=== PATIENT | female | born 1985 | race American Indian/Alaskan Native ===

== ENCOUNTER 2019-04-17 13:06 | Emergency (ER) | payer OTHER ==
--- NOTE | 2019-04-17 14:55 | Event Note ---
ED Screening Note ED Screening Note: generalized abd pain that began a week ago states she is currently 3 months ago states she goes to my [facility] [employer] states she is also having headache and dizziness she is taking labetalol 200 mg BID no vaginal bleeding no dysuria PMHx HTN no allergies to meds This initial assessment/diagnostic orders/clinical plan/treatment(s) is/are subject to change based on patients health status, clinical progression and re- assessment by fellow clinical providers in the ED. Further treatment and workup at subsequent clinical providers discretion. Patient/guardian urged not to elope from the ED as their condition may be serious if not clinically assessed and managed. Initial orders include: labs, UA, US
[2019-04-17 14:56] VITALS: BP 129/75
[2019-04-17 15:51] LABS: Basophils # (Auto) 0.1 K/mm3 (0.0-0.1); Basophils % (Auto) 0.7 % (0.0-1.8); Eosinophils # (Auto) 0.2 K/mm3 (0.0-0.4); Hematocrit 36.4 % (30.3-42.9); Lymphocytes # (Auto) 1.9 K/mm3 (1.2-5.4); Lymphocytes % (Auto) 17.5 % (13.4-35.0); Mean Corpuscular HGB Conc 33 % (30-34); Mean Corpuscular Volume 86 fl (79-97); Monocytes # (Auto) 0.4 K/mm3 (0.0-0.8); Monocytes % (Auto) 3.5 % (0.0-7.3); Platelet Count 274 K/mm3 (140-440); Red Blood Count 4.22 M/mm3 (3.65-5.03); Red Cell Distribution Width 13.8 % (13.2-15.2)
[2019-04-17 15:51] LABS: Bacteria,Urine 1+ /HPF (Negative); Bilirubin,Urine NEG (Negative); Blood,Urine NEG (Negative); Color,Urine Yellow (Yellow); Mucus,Urine FEW /HPF; Protein,Urine <15 mg/dL mg/dL (Negative); Urobilinogen,Urine < 2.0 mg/dL (<2.0)
[2019-04-17 16:07] LABS: Alanine Aminotransferase 17 units/L (7-56); Albumin 3.6 g/dL (3.9-5); BUN/Creatinine Ratio 15; Blood Urea Nitrogen 9 mg/dL (7-17); Calcium 9.4 mg/dL (8.4-10.2); Hemolysis Index 19
--- NOTE | 2019-04-17 17:05 | Ultrasound Report ---
US OB <= 14 weeks fetus INDICATION / CLINICAL INFORMATION: 3 months preg, abd pain. COMPARISON: None available. FINDINGS: Single, viable intrauterine . heart rate 159. Amniotic fluid volume is subjectively normal. Biparietal diameter 2.24 cm, 13 weeks 5 days. Femur length 1.23 cm, 13 weeks 4 days. [place]-rump length 7.44 cm, 13 weeks 4 days. Left ovary is normal. Right ovary contains a complex 2.8 cm cyst, probably resolving corpus luteal cy st. IMPRESSION: 1. Single, viable intrauterine , 13 weeks 4 days. Signer Name: Moses Hoffman MD Signed: 04/17/2019 5:01 PM Workstation Name: [id number]
== END 2019-04-17 19:38 | disposition left against medical advice (07) ==
LOC: ED 13:06
DX: R42 Dizziness and giddiness (principal); Z53.21 Procedure and treatment not carried out due to patient leaving prior to being seen by health care provider
CPT/HCPCS: 36415; 76801; 80053; 81001; 83735; 84100; 84702; 85025; 87086

== ENCOUNTER 2019-09-05 22:21 | Outpatient (CLI) | payer OTHER ==
[2019-09-05] MEDS ORDERED: LACTATED RINGERS 1,000 ML IV SCH (23:45)
[2019-09-05] MEDS ORDERED: ACETAMINOPHEN 325 MG TAB PO PRN (23:48)
[2019-09-06 00:21] VITALS: BP 118/67
[2019-09-06 00:29] LABS: Basophils % (Auto) 0.2 % (0.0-1.8); Eosinophils % (Auto) 0.2 % (0.0-4.3); Lymphocytes % (Auto) 7.8 % (13.4-35.0); Monocytes % (Auto) 7.8 % (0.0-7.3)
[2019-09-06 00:47] LABS: Hematocrit 32.5 % (30.3-42.9); Mean Corpuscular HGB Conc 34 % (30-34); Mean Corpuscular Volume 87 fl (79-97); Platelet Count 240 K/mm3 (140-440); Red Blood Count 3.76 M/mm3 (3.65-5.03); Red Cell Distribution Width 13.6 % (13.2-15.2)
[2019-09-06 00:51] LABS: Alanine Aminotransferase 45 units/L (7-56); Albumin 3.2 g/dL (3.9-5); BUN/Creatinine Ratio 12; Blood Urea Nitrogen 6 mg/dL (7-17); Calcium 8.9 mg/dL (8.4-10.2); Hemolysis Index 2
--- NOTE | 2019-09-06 01:14 | Event Note ---
Date: 09/06/19 Orders given for admission as pt has some symptoms that could be c/w Covid19 vx flu ( body aches, cold symptoms) and testing was ordered. Pt signed out AMA stating she did not want admission despite elevate wbc maternal tachycardia. She states she would like to get testing outside the hospital. I advised RN that pt can go to websites available and find free testing sites or f/u with pcp but that this provider does not have those referrals here at this time. This information was given to pt and she signed out AMA.
[2019-09-06] MEDS ORDERED: FAMOTIDINE 20 MG TAB PO SCH (10:00)
== END 2019-09-06 00:32 | disposition home or self-care (01) ==
LOC: TRG 22:21 → APU 22:22 → TRG 09-06 00:32
PROVIDERS: ATTEND Obstetrics & Gynecology
DX: O47.03 False labor before 37 completed weeks of gestation, third trimester (principal); Z3A.33 33 weeks gestation of pregnancy
CPT/HCPCS: 36415; 80053; 85025

== ENCOUNTER 2019-10-17 20:16 | Inpatient (IN) | payer OTHER ==
--- NOTE | 2019-10-17 22:17 | History and Physical Report ---
History of Present Illness Date of examination: 10/17/19 Date of admission: 10/17/19 20:16 Chief complaint: IOL @ 39+6 weeks History of present illness: EDC Confirmation: 10/18/2019 Past History : 5 Term Births: 2 Premature Births: 0 Living Children: 2 Para: 2 Mult. Births: 0 Prev : 0 Prev. attempt? 0 Aborta: 2 Elect. Ab: 0 Spont. Ab: 2 Ectopics: 0 # 1 Delivery date: 2007 Weeks Gestation: 40 Delivery type: Infant Sex: Male weight: 7-3 # 2 Delivery date: 2010 Weeks Gestation: 40 Delivery type: Sex: Female weight: 7-2 # 3 Delivery date: 2012 Weeks Gestation: 4 Delivery type: SAB # 4 Delivery date: 2017 Weeks Gestation: 8 Delivery type: SAB Risk Factors: Smoked Tobacco Use: Never smoker Smokeless Tobacco Use: Never Passive smoke exposure: no Drug use: no HIV high-risk behavior: no Caffeine use: 0 drinks per day Alcohol use: yes Type: occ Comments: use prior to preg Exercise: yes Times per week: 3 Type of Exercise: walking 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 of genital herpes: no Rash, Viral, or Febrile illness since last LMP? no Varicella/Chicken Pox Status: Previous Disease TB Risk: no Genetic History Congenital Heart Defect: Mom: no Dad: no Mikki Disease: Mom: no Dad: no Thalassemia Mom: no Dad: no Neural Tube Defect Mom: no Dad: no Down's Syndrome Mom: no Dad: no Eliseo-Sachs Mom: no Dad: no Sickle Cell Disease/Trait Mom: no Dad: no Hemophilia Mom: no Dad: no Muscular Dystrophy Mom: no Dad: no Cystic Fibrosis Mom: no Dad: no [place] Chorea Mom: no Dad: no Mental Retardation Mom: no Dad: no Fragile X Mom: no Dad: no Other Genetic/Chromosomal Disorder Mom: no Dad: no Child w/other defect Mom: no Dad: no Enviromental Exposures Xray Exposure: no Medication, drug, or alcohol use since LMP: no Chemical/Other Exposure: no Exposure to Cat Liter: no Hx of Parvovirus (Fifth Disease): no 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 Allergies (reviewed today): No known allergies Past History Past Medical History: other (see HPI) Past Surgical History: other (see HPI) 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) Family/Genetic History: other (see HPI) - Obstetrical History Expected Date of Delivery: 10/18/19 Actual Gestation: 39 Week(s) 6 Day(s) : 5 Para: 2 Hx # Term Pregnancies: 2 Number of Pregnancies: 0 Spontaneous Abortions: 2 Induced : 0 Number of Living Children: 2 Medications and Allergies Allergies Allergy/AdvReac Type Severity Reaction Status Date / Time No Known Allergies Allergy Verified 10/17/19 21:47 Home Medications Medication Instructions Recorded Confirmed Last Taken Type Aspirin [Aspirin BABY CHEW TAB] 1 each PO DAILY 07/02/19 10/17/19 10/17/19 10:00 History 81 mg Pnv No.153/FA/Om3/Dha/Epa/Fish 1 each PO DAILY 07/02/19 10/17/19 10/17/19 10:00 History [[facility] Gummies] labetaloL 100 each PO BID 07/02/19 10/17/19 08/29/19 History Review of Systems All systems: negative - Vital Signs Vital signs: Vital Signs Temp Pulse Resp BP 98.9 F 83 16 131/69 10/17/19 21:52 10/17/19 21:52 10/17/19 21:52 10/17/19 21:52 Temp Pulse Resp BP Pulse Ox 98.9 F 83 16 131/69 10/17/19 21:52 10/17/19 21:54 10/17/19 21:52 10/17/19 21:54 - Physical Exam Breasts: Positive: normal Cardiovascular: Regular rate Lungs: Positive: Clear to auscultation, Normal air movement Abdomen: Positive: normal appearance, soft Genitourinary (Female): Positive: normal external genitalia, normal perenium Vulva: both: normal Vagina: Positive: normal moisture Uterus: Positive: normal size, normal contour Anus/Rectum: Positive: normal perianal skin Extremities: Positive: normal Deep Tendon Reflex Grade: Normal +2 - Obstetrical FHR: category 1 Uterine Contraction Monitor Mode: External Cervical Dilatation: 0.5 (posterior) Cervical Effacement Percentage: 50 station: -3 Uterine Contraction Pattern: Irregular Uterine Tone Measurement Phase: Contraction Uterine Contraction Intensity: Mild Results All other labs normal. Assessment and Plan 34y/o @ 39+6 weeks here for IOL d/t hx HTN currently well controlled w/o m eds. Admission orders in EMR. plan for cervical ripening tonight and pitocin in AM. Serial IOL expectations discussed with patient. - Patient Problems (1) GBS (group B Streptococcus carrier), +RV culture, currently Current Visit: Yes Status: Acute Plan to address problem: Ampicillin q4hr when in labor (2) HTN (hypertension) Current Visit: Yes Status: Acute Qualifiers: Hypertension type: essential hypertension Qualified Code(s): I10 - Essential (primary) hypertension Plan to address problem: monitor b/p baseline pre-e labs (3) 39 weeks gestation of Current Visit: Yes Status: Acute
[2019-10-17] MEDS ORDERED: fentaNYL 100 MCG/2 ML INJ IV PRN (22:18)
[2019-10-17] MEDS ORDERED: DINOPROSTONE 10 MG VAG SUPP VG ONE (22:18)
[2019-10-17] MEDS ORDERED: BUTORPHANOL 2 MG/1 ML INJ IV PRN (22:18)
[2019-10-17] MEDS ORDERED: AMPICILLIN/NS 2 GM/100 ML 2 GM/100 ML BAG IV ONE (22:18)
[2019-10-17] MEDS ORDERED: MINERAL OIL 30 ML ORAL LIQD PO PRN (22:18)
[2019-10-17] MEDS ORDERED: LIDOCAINE (2%) 20 MG/1 ML VIAL 20 ML MDV INFILTRATI ONE (22:18)
[2019-10-17] MEDS ORDERED: ONDANSETRON 4 MG/2 ML INJ IV PRN (22:18)
[2019-10-17] MEDS ORDERED: TERBUTALINE 1 MG/1 ML INJ SUB-Q PRN (22:18)
[2019-10-17] MEDS ORDERED: ePHEDrine SULFATE 50 MG/1 ML INJ IV PRN (22:18)
[2019-10-17] MEDS ORDERED: ZOLPIDEM 5 MG TAB PO ONE (22:32)
[2019-10-17] MEDS ORDERED: OXYTOCIN 20 UNIT/1000ML DRIP 20 UNITS/1,000 ML BAG IV SCH (23:00)
[2019-10-18] LABS: Hematocrit 34.3 % (30.3-42.9); Hemoglobin 12.1 gm/dl (10.1-14.3); Mean Corpuscular HGB Conc 35 % (30-34); Mean Corpuscular Volume 89 fl (79-97); Platelet Count 271 K/mm3 (140-440); Red Blood Count 3.88 M/mm3 (3.65-5.03); Red Cell Distribution Width 14.3 % (13.2-15.2)
[2019-10-18 00:15] LABS: Alanine Aminotransferase 12 units/L (7-56)
[2019-10-18] MEDS ORDERED: AMPICILLIN/NS 1 GM/50 ML 1 GM/50 ML BAG IV SCH (02:20)
[2019-10-18 02:48] LABS: Uric Acid 4.5 mg/dL (3.5-7.6)
[2019-10-18] MEDS ORDERED: AMPICILLIN/NS 2 GM/100 ML 2 GM/100 ML BAG IV ONE (05:00)
[2019-10-18] MEDS: LACTATED RINGERS 1,000 ML IV SCH ×2 (05:02→11:43)
--- NOTE | 2019-10-18 05:32 | Progress Note ---
Assessment and Plan IVF bolusing for epidural. SROM clear with small bloody show. Cervidil removed and ampicillin started. Anticipate . - Patient Problems (1) GBS (group B Streptococcus carrier), +RV culture, currently Current Visit: Yes Status: Acute Plan to address problem: Ampicillin q4hr until delivery (2) HTN (hypertension) Current Visit: Yes Status: Acute Qualifiers: Hypertension type: essential hypertension Qualified Code(s): I10 - Essential (primary) hypertension Plan to address problem: pre-e labs normal (3) 39 weeks gestation of Current Visit: Yes Status: Acute Subjective - Subjective Date of service: 10/18/19 Principal diagnosis: IOL for CHTN @ 40+0 Interval history: EDC Confirmation: 10/18/2019 Past History : 5 Term Births: 2 Premature Births: 0 Living Children: 2 Para: 2 Mult. Births: 0 Prev : 0 Prev. attempt? 0 Aborta: 2 Elect. Ab: 0 Spont. 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 of genital herpes: no Rash, Viral, or Febrile illness since last LMP? no Varicella/Chicken Pox Status: Previous Disease TB Risk: no Genetic History Congenital Heart Defect: Mom: no Dad: no Mikki Disease: Mom: no Dad: no Thalassemia Mom: no Dad: no Neural Tube Defect Mom: no Dad: no Down's Syndrome Mom: no Dad: no Eliseo-Sachs Mom: no Dad: no Sickle Cell Disease/Trait Mom: no Dad: no Hemophilia Mom: no Dad: no Muscular Dystrophy Mom: no Dad: no Cystic Fibrosis Mom: no Dad: no [place] Chorea Mom: no Dad: no Mental Retardation Mom: no Dad: no Fragile X Mom: no Dad: no Other Genetic/Chromosomal Disorder Mom: no Dad: no Child w/other defect Mom: no Dad: no Enviromental Exposures Xray Exposure: no Medication, drug, or alcohol use since LMP: no Chemical/Other Exposure: no Exposure to Cat Liter: no Hx of Parvovirus (Fifth Disease): no 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 Allergies (reviewed today): No known allergies Patient reports: loss of fluid, vaginal bleeding, contractions Objective - Vital Signs Vital Signs: Vital Signs - 12hr 10/17/19 10/17/19 10/18/19 21:52 21:54 03:55 Temperature 98.9 F Pulse Rate 83 83 Respiratory 16 18 Rate Blood Pressure 131/69 Blood Pressure 131/69 [Left] - Exam Breasts: normal Cardiovascular: Regular rate Lungs: Clear to auscultation, Normal air movement Abdomen: Present: normal appearance, soft Vulva: both: normal Uterus: Present: normal FHR: auscultation normal Uterine Contraction Monitor Mode: External Cervical Dilatation: 4 (SROM clear @ 0343) Cervical Effacement Percentage: 80 station: -2 Uterine Contraction Frequency (min): 1-2 Uterine Contraction Duration: 60 Uterine Contraction Pattern: Regular Uterine Tone Measurement Phase: Contraction Uterine Contraction Intensity: Strong/Firm Extremities: normal - Labs Labs: Abnormal Labs 10/17/19 10/17/19 22:40 22:40 MCHC 35 H Creatinine 0.6 L Laboratory Results - last 24 hr 10/17/19 10/17/19 10/17/19 22:40 22:40 22:40 WBC 10.8 RBC 3.88 Hgb 12.1 Hct 34.3 MCV 89 MCH 31 MCHC 35 H RDW 14.3 Plt Count 271 Creatinine 0.6 L Estimated GFR > 60 Uric Acid 4.5 AST 20 ALT 12 Lactate Dehydrogenase 140 Syphilis IgG Antibody Blood Type O POSITIVE Antibody Screen Negative 10/17/19 22:40 WBC RBC Hgb Hct MCV MCH MCHC RDW Plt Count Creatinine Estimated GFR Uric Acid AST ALT Lactate Dehydrogenase Syphilis IgG Antibody Non-reactive Blood Type Antibody Screen
[2019-10-18] MEDS ORDERED: DEXMEDETOMIDINE 200 MCG/2 ML VIAL IV ONE (06:19)
--- NOTE | 2019-10-18 06:53 | Anesthesia Consultation ---
Anesthesia Consult and Med Hx Date of service: 10/18/19 - Airway Anesthetic Teeth Evaluation: Good ROM Head & Neck: Adequate Mental/Hyoid Distance: Adequate Mallampati Class: Class II Intubation Access Assessment: Probably Good - Pulmonary Exam CTA: Yes - Cardiac Exam Cardiac Exam: RRR - Pre-Operative Health Status ASA Pre-Surgery Classification: ASA2 Proposed Anesthetic Plan: Epidural, Spinal - Pulmonary Hx Smoking: No Hx Asthma: No COPD: No Hx Pneumonia: No - Cardiovascular System Hx Hypertension: Yes - Central Nervous System Hx Seizures: No Hx Psychiatric Problems: No - Endocrine Hx Renal Disease: No Hx End Stage Renal Disease: No Hx Hypothyroidism: No Hx Hyperthyroidism: No - Hematic Hx Anemia: No Hx Sickle Cell Disease: No - Other Systems Hx Alcohol Use: No
[2019-10-18] MEDS ORDERED: diphenhydrAMINE 50 MG/ML VIAL IV PRN (06:54)
[2019-10-18] MEDS ORDERED: NALOXONE 2 MG/2 ML INJ IV PRN (06:54)
[2019-10-18] MEDS ORDERED: NalbUPHINE 10 MG/1 ML INJ IV PRN (06:54)
--- NOTE | 2019-10-18 06:54 | Progress Note ---
Labor Epidural - Labor Epidural Start Time: 06:28 Stop Time: 06:40 Performed by:: ELISEO JAUREGUI Procedure: Patient is requesting combined spinal epidural for labor and pain. H&P, labs were reviewed. All questions and concerns were answered. Informed consent was obtained. Timeout performed. Patient in sitting position on side of bed. Sterile prep and drape was performed. [3] mL 1% lidocaine skin wheal at L [3]-L [4]. 18-gauge Touhy epidural needle advanced to [id number] using air technique, [5]. 27-gauge spinal needle advanced [clear positive free-flowing] CSF. spinal dose of [Marcaine 3.75mg]. Epidural catheter advanced to [14] cm. [Negative] Aspiration, [negative] test dose. Sterile dressing applied. Patient tolerated procedure well.
[2019-10-18] MEDS ORDERED: fentaNYL-BUPIV 2 MCG/ML-0.125% 200 MCG/100 ML BAG EPIDURAL SCH (07:00)
--- NOTE | 2019-10-18 07:39 | Progress Note ---
Assessment and Plan - Patient Problems (1) HTN (hypertension) Onset Date: ~10/18/19 Current Visit: Yes Status: Acute Qualifiers: Hypertension type: essential hypertension Qualified Code(s): I10 - Essential (primary) hypertension Plan to address problem: Pressures range post epidural 120's-130's/70's-80's with one outlier diastolic of 90. Continue monitoring pressure per protocol. Subjective - Subjective Date of service: 10/18/19 (IUP @ 40+ IOL for CHTN/Obesity) Principal diagnosis: IOL for CHTN @ 40+0 Interval history: SVE /-2 Moderate bloody show. Epidural in. Martínez to BSD. FSE placed due to difficulty maintaining continuous EFM. Cat 2 tracing immediately following Epidural placement. Position changed to left side lying Patient reports: loss of fluid, vaginal bleeding, contractions Objective - Vital Signs Vital Signs: Vital Signs - 12hr 10/17/19 10/17/19 10/18/19 21:52 21:54 03:55 Temperature 98.9 F Pulse Rate 83 83 Respiratory 16 18 Rate Blood Pressure 131/69 Blood Pressure 131/69 [Left] O2 Sat by Pulse Oximetry 10/18/19 10/18/19 10/18/19 05:35 05:36 05:37 Temperature 98.6 F Pulse Rate 98 H 99 H 98 H Respiratory 16 Rate Blood Pressure 162/99 153/85 Blood Pressure 153/85 [Left] O2 Sat by Pulse 100 Oximetry 10/18/19 10/18/19 10/18/19 05:42 05:47 05:52 Temperature Pulse Rate 98 H 99 H 92 H Respiratory Rate Blood Pressure Blood Pressure [Left] O2 Sat by Pulse 100 100 100 Oximetry 10/18/19 10/18/19 10/18/19 05:53 05:55 05:57 Temperature Pulse Rate 93 H 93 H 100 H Respiratory Rate Blood Pressure 148/81 Blood Pressure 148/81 [Left] O2 Sat by Pulse 100 Oximetry 10/18/19 10/18/19 10/18/19 06:02 06:07 06:08 Temperature Pulse Rate 92 H 99 H 98 H Respiratory Rate Blood Pressure 164/84 Blood Pressure [Left] O2 Sat by Pulse 100 100 Oximetry 10/18/19 10/18/19 10/18/19 06:12 06:17 06:22 Temperature Pulse Rate 94 H 102 H 103 H Respiratory Rate Blood Pressure Blood Pressure [Left] O2 Sat by Pulse 100 100 100 Oximetry 10/18/19 10/18/19 10/18/19 06:24 06:27 06:32 Temperature Pulse Rate 123 H 113 H 106 H Respiratory Rate Blood Pressure 99/71 Blood Pressure [Left] O2 Sat by Pulse 100 100 Oximetry 10/18/19 10/18/19 10/18/19 06:37 06:42 06:43 Temperature Pulse Rate 104 H 113 H 104 H Respiratory Rate Blood Pressure 149/89 155/86 Blood Pressure [Left] O2 Sat by Pulse 99 99 Oximetry 10/18/19 10/18/19 10/18/19 06:47 06:49 06:52 Temperature Pulse Rate 99 H 102 H 101 H Respiratory Rate Blood Pressure 148/83 Blood Pressure [Left] O2 Sat by Pulse 98 77 L 99 Oximetry 10/18/19 10/18/19 10/18/19 06:55 06:57 07:02 Temperature Pulse Rate 98 H 87 97 H Respiratory Rate Blood Pressure 143/89 Blood Pressure [Left] O2 Sat by Pulse 99 88 Oximetry 10/18/19 10/18/19 10/18/19 07:04 07:09 07:11 Temperature Pulse Rate 90 85 83 Respiratory Rate Blood Pressure 138/72 127/64 Blood Pressure [Left] O2 Sat by Pulse 98 Oximetry 10/18/19 10/18/19 10/18/19 07:14 07:16 07:18 Temperature Pulse Rate 89 90 85 Respiratory Rate Blood Pressure 126/73 125/71 Blood Pressure [Left] O2 Sat by Pulse 97 Oximetry 10/18/19 10/18/19 10/18/19 07:21 07:24 07:26 Temperature Pulse Rate 91 H 94 H 100 H Respiratory Rate Blood Pressure 136/84 Blood Pressure [Left] O2 Sat by Pulse 98 98 Oximetry 10/18/19 10/18/19 07:29 07:31 Temperature Pulse Rate 86 88 Respiratory Rate Blood Pressure 135/74 Blood Pressure [Left] O2 Sat by Pulse 100 Oximetry - Exam Breasts: deferred Cardiovascular: Regular rate Lungs: Normal air movement Abdomen: Present: normal appearance, soft. Absent: distention, tenderness Uterus: Present: normal FHR: auscultation normal, category 1 (with minimal variability, no decels) Uterine Contraction Monitor Mode: Internal Cervical Dilatation: 7 (ISE applied) Cervical Effacement Percentage: 80 station: -2 Uterine Contraction Pattern: Regular Uterine Tone Measurement Phase: Resting Uterine Contraction Intensity: Moderate Extremities: edema Deep Tendon Reflex Grade: Normal +2 - Labs Labs: Abnormal Labs 10/17/19 10/17/19 22:40 22:40 MCHC 35 H Creatinine 0.6 L Laboratory Results - last 24 hr 10/17/19 10/17/19 10/17/19 22:40 22:40 22:40 WBC 10.8 RBC 3.88 Hgb 12.1 Hct 34.3 MCV 89 MCH 31 MCHC 35 H RDW 14.3 Plt Count 271 Creatinine 0.6 L Estimated GFR > 60 Uric Acid 4.5 AST 20 ALT 12 Lactate Dehydrogenase 140 Syphilis IgG Antibody Blood Type O POSITIVE Antibody Screen Negative 10/17/19 22:40 WBC RBC Hgb Hct MCV MCH MCHC RDW Plt Count Creatinine Estimated GFR Uric Acid AST ALT Lactate Dehydrogenase Syphilis IgG Antibody Non-reactive Blood Type Antibody Screen
[2019-10-18] MEDS: AMPICILLIN/NS 1 GM/50 ML 1 GM/50 ML BAG IV SCH ×2 (07:47→12:05)
[2019-10-18] MEDS ORDERED: BUPIVACAINE/PF (0.25%) 2.5 MG/ML 10 ML VIAL INFILTRATI ONE (08:22)
[2019-10-18] MEDS ORDERED: OXYTOCIN DRIP 30,000 MILLIUNITS/500 ML BAG IV ONE (09:19)
--- NOTE | 2019-10-18 09:23 | Event Note ---
Date: 10/18/19 (Comfortable with Epidural) SVE /-2. Starting pitocin augmentation low dose. Bloody show has decreased significantly to small. Hematuria continues will sen UA with culture.
[2019-10-18 10:13] LABS: Bilirubin,Urine NEG (Negative); Blood,Urine LG (Negative); Color,Urine Yellow (Yellow); Urobilinogen,Urine < 2.0 mg/dL (<2.0)
[2019-10-18 10:23] LABS: Protein,Urine >500 mg/dL (Negative)
[2019-10-18 10:24] LABS: RBC,Urine > 182.0 /HPF (0.0-6.0)
--- NOTE | 2019-10-18 10:25 | Progress Note ---
Assessment and Plan Pt continues to c/o hot spot on left side. She is very numb elsewhere. SVE 8,70,-1 IUPC placed Pit @ 4mu Slow cervical chg poss r/t decrease in contraction pattern. Will observe. Dr Sosa aware. - Patient Problems (1) HTN (hypertension) Onset Date: ~10/18/19 Current Visit: Yes Status: Acute Qualifiers: Hypertension type: essential hypertension Qualified Code(s): I10 - Essential (primary) hypertension Subjective - Subjective Date of service: 10/18/19 (Slow cervical chg) Principal diagnosis: IOL for CHTN @ 40+0 Interval history: SVE /-2 Moderate bloody show. Epidural in. Martínez to BSD. FSE placed due to difficulty maintaining continuous EFM. Cat 2 tracing immediately following Epidural placement. Position changed to left side lying Patient reports: loss of fluid, vaginal bleeding, contractions Objective - Vital Signs Vital Signs: Vital Signs - 12hr 10/18/19 10/18/19 10/18/19 03:55 05:35 05:36 Temperature 98.6 F Pulse Rate 98 H 99 H Respiratory 18 16 Rate Blood Pressure 162/99 Blood Pressure 153/85 [Left] O2 Sat by Pulse Oximetry 10/18/19 10/18/19 10/18/19 05:37 05:42 05:47 Temperature Pulse Rate 98 H 98 H 99 H Respiratory Rate Blood Pressure 153/85 Blood Pressure [Left] O2 Sat by Pulse 100 100 100 Oximetry 10/18/19 10/18/19 10/18/19 05:52 05:53 05:55 Temperature Pulse Rate 92 H 93 H 93 H Respiratory Rate Blood Pressure 148/81 Blood Pressure 148/81 [Left] O2 Sat by Pulse 100 Oximetry 10/18/19 10/18/19 10/18/19 05:57 06:02 06:07 Temperature Pulse Rate 100 H 92 H 99 H Respiratory Rate Blood Pressure Blood Pressure [Left] O2 Sat by Pulse 100 100 100 Oximetry 10/18/19 10/18/19 10/18/19 06:08 06:12 06:17 Temperature Pulse Rate 98 H 94 H 102 H Respiratory Rate Blood Pressure 164/84 Blood Pressure [Left] O2 Sat by Pulse 100 100 Oximetry 10/18/19 10/18/19 10/18/19 06:22 06:24 06:27 Temperature Pulse Rate 103 H 123 H 113 H Respiratory Rate Blood Pressure 99/71 Blood Pressure [Left] O2 Sat by Pulse 100 100 Oximetry 10/18/19 10/18/19 10/18/19 06:32 06:37 06:42 Temperature Pulse Rate 106 H 104 H 113 H Respiratory Rate Blood Pressure 149/89 Blood Pressure [Left] O2 Sat by Pulse 100 99 99 Oximetry 10/18/19 10/18/19 10/18/19 06:43 06:47 06:49 Temperature Pulse Rate 104 H 99 H 102 H Respiratory Rate Blood Pressure 155/86 148/83 Blood Pressure [Left] O2 Sat by Pulse 98 77 L Oximetry 10/18/19 10/18/19 10/18/19 06:52 06:55 06:57 Temperature Pulse Rate 101 H 98 H 87 Respiratory Rate Blood Pressure 143/89 Blood Pressure [Left] O2 Sat by Pulse 99 99 Oximetry 10/18/19 10/18/19 10/18/19 07:02 07:04 07:09 Temperature Pulse Rate 97 H 90 85 Respiratory Rate Blood Pressure 138/72 127/64 Blood Pressure [Left] O2 Sat by Pulse 88 Oximetry 10/18/19 10/18/19 10/18/19 07:11 07:14 07:16 Temperature Pulse Rate 83 89 90 Respiratory Rate Blood Pressure 126/73 Blood Pressure [Left] O2 Sat by Pulse 98 97 Oximetry 10/18/19 10/18/19 10/18/19 07:18 07:21 07:24 Temperature Pulse Rate 85 91 H 94 H Respiratory Rate Blood Pressure 125/71 136/84 Blood Pressure [Left] O2 Sat by Pulse 98 Oximetry 10/18/19 10/18/19 10/18/19 07:26 07:29 07:31 Temperature Pulse Rate 100 H 86 88 Respiratory Rate Blood Pressure 135/74 Blood Pressure [Left] O2 Sat by Pulse 98 100 Oximetry 10/18/19 10/18/19 10/18/19 07:35 07:36 07:38 Temperature Pulse Rate 83 92 H 97 H Respiratory Rate Blood Pressure 124/79 137/90 Blood Pressure [Left] O2 Sat by Pulse 100 Oximetry 10/18/19 10/18/19 10/18/19 07:41 07:44 07:46 Temperature Pulse Rate 100 H 93 H 102 H Respiratory Rate Blood Pressure 123/66 Blood Pressure [Left] O2 Sat by Pulse 99 99 Oximetry 10/18/19 10/18/19 10/18/19 07:49 07:51 07:52 Temperature Pulse Rate 96 H 97 H 91 H Respiratory Rate Blood Pressure 133/77 Blood Pressure [Left] O2 Sat by Pulse 100 86 Oximetry 10/18/19 10/18/19 10/18/19 07:55 07:56 07:58 Temperature Pulse Rate 97 H 106 H 97 H Respiratory Rate Blood Pressure 192/111 174/94 136/79 Blood Pressure [Left] O2 Sat by Pulse 96 Oximetry 10/18/19 10/18/19 10/18/19 08:01 08:06 08:11 Temperature Pulse Rate 98 H 103 H 102 H Respiratory Rate Blood Pressure 137/79 Blood Pressure [Left] O2 Sat by Pulse 99 99 100 Oximetry 10/18/19 10/18/19 10/18/19 08:16 08:21 08:26 Temperature Pulse Rate 97 H 103 H 93 H Respiratory Rate Blood Pressure Blood Pressure [Left] O2 Sat by Pulse 99 100 95 Oximetry 10/18/19 10/18/19 10/18/19 08:28 08:30 08:31 Temperature 98.2 F Pulse Rate 98 H 90 98 H Respiratory Rate Blood Pressure 148/93 Blood Pressure [Left] O2 Sat by Pulse 94 98 Oximetry 10/18/19 10/18/19 10/18/19 08:36 08:41 08:46 Temperature Pulse Rate 98 H 84 91 H Respiratory Rate Blood Pressure 133/80 Blood Pressure [Left] O2 Sat by Pulse 97 100 98 Oximetry 10/18/19 10/18/19 10/18/19 08:51 08:56 09:01 Temperature Pulse Rate 89 91 H 87 Respiratory Rate Blood Pressure 129/75 Blood Pressure [Left] O2 Sat by Pulse 98 99 99 Oximetry 10/18/19 10/18/19 10/18/19 09:06 09:11 09:16 Temperature Pulse Rate 87 87 86 Respiratory Rate Blood Pressure 93/54 Blood Pressure [Left] O2 Sat by Pulse 97 97 99 Oximetry 10/18/19 10/18/19 10/18/19 09:21 09:26 09:27 Temperature Pulse Rate 100 H 94 H 93 H Respiratory Rate Blood Pressure 110/66 Blood Pressure [Left] O2 Sat by Pulse 99 98 Oximetry 10/18/19 10/18/19 10/18/19 09:31 09:36 09:41 Temperature Pulse Rate 94 H 91 H 88 Respiratory Rate Blood Pressure 121/71 Blood Pressure [Left] O2 Sat by Pulse 99 99 100 Oximetry 10/18/19 10/18/19 10/18/19 09:46 09:51 09:56 Temperature Pulse Rate 87 83 85 Respiratory Rate Blood Pressure 133/75 Blood Pressure [Left] O2 Sat by Pulse 100 100 100 Oximetry 10/18/19 10/18/19 10/18/19 10:01 10:06 10:11 Temperature Pulse Rate 84 86 89 Respiratory Rate Blood Pressure 136/88 Blood Pressure [Left] O2 Sat by Pulse 100 100 Oximetry 10/18/19 10:13 Temperature Pulse Rate 91 H Respiratory Rate Blood Pressure Blood Pressure [Left] O2 Sat by Pulse 78 L Oximetry - Exam Breasts: deferred Cardiovascular: Regular rate Abdomen: Present: normal appearance, soft. Absent: distention, tenderness Uterus: Present: normal FHR: auscultation normal, category 1 Uterine Contraction Monitor Mode: Internal Cervical Dilatation: 8 (IUPC placed) Cervical Effacement Percentage: 70 station: -1 Uterine Contraction Pattern: Irregular (When I arrived this AM ctx were q2min Now after epidural they have spaced out Pit started IUPC placed.) Uterine Tone Measurement Phase: Resting Uterine Contraction Intensity: Moderate Extremities: edema Deep Tendon Reflex Grade: Normal +2 - Labs Labs: Abnormal Labs 10/17/19 10/17/19 22:40 22:40 MCHC 35 H Creatinine 0.6 L Laboratory Results - last 24 hr 10/17/19 10/17/19 10/17/19 22:40 22:40 22:40 WBC 10.8 RBC 3.88 Hgb 12.1 Hct 34.3 MCV 89 MCH 31 MCHC 35 H RDW 14.3 Plt Count 271 Creatinine 0.6 L Estimated GFR > 60 Uric Acid 4.5 AST 20 ALT 12 Lactate Dehydrogenase 140 Urine Bilirubin Syphilis IgG Antibody Blood Type O POSITIVE Antibody Screen Negative 10/17/19 10/18/19 22:40 Unknown WBC RBC Hgb Hct MCV MCH MCHC RDW Plt Count Creatinine Estimated GFR Uric Acid AST ALT Lactate Dehydrogenase Urine Bilirubin Neg Syphilis IgG Antibody Non-reactive Blood Type Antibody Screen
[2019-10-18] MEDS ORDERED: miSOPROStol 200 MCG TAB ONE (12:53)
[2019-10-18] MEDS ORDERED: MAGNESIUM SULFATE 40GM/1000ML 40 GM/1,000 ML BAG IV SCH (13:00)
[2019-10-18] MEDS ORDERED: miSOPROStol 200 MCG TAB PR ONE (13:07)
[2019-10-18] MEDS ORDERED: ACETAMINOPHEN 325 MG TAB PO PRN (13:19)
[2019-10-18] MEDS ORDERED: diphenhydrAMINE 25 MG CAP PO PRN (13:19)
[2019-10-18] MEDS ORDERED: HYDROcodone/ACETAMINOPHEN 5-325 MG TAB PO PRN (13:19)
[2019-10-18] MEDS ORDERED: WITCH HAZEL/ GLYCERIN PAD TP PRN (13:19)
[2019-10-18] MEDS ORDERED: BENZOCAINE/MENTHOL 20/0.5% TOP SPRAY 56 GM TP PRN (13:19)
[2019-10-18] MEDS ORDERED: PROMETHAZINE 25 MG TAB PO PRN (13:19)
[2019-10-18] MEDS ORDERED: LANOLIN/ZINC/DIMETHICONE (LANSINOH) 7 GM TP PRN (13:19)
--- NOTE | 2019-10-18 13:40 | Procedure Note ---
OB Delivery Note - Delivery Date of Delivery: 10/18/19 () Pulverizing And Sifting Operator: SARA WAITE (ANTON Meza) Estimated blood loss: 500cc - Vaginal Delivery presentation: vertex Delivery position: OA Intrapartum events: other(please specify) (CHTN) Delivery induction: cervidil Delivery augmentation: pitocin Delivery monitor: internal FHT, internal uterine Route of delivery: Delivery placenta: manual Delivery cord: nuchal cord, 3 umbilical vessels Episiotomy: none Delivery laceration: 2nd degree Delivery repair: vicryl Anesthesia: epidural Delivery comments: Angi in room. Count correct x's 2. viable female over intact perineum cord around the neck x's 1, delivered through. Baby to mom's abdomen skin to skin. Cord blood obtained. Placenta and membrane manually removed. Uterus boggy responded to pit, massage, and 800 mcg cytotec MD. 2nd degree vaginal perineal laceration repaired with 3- 0 vicryl. 8/8, EBL 500 ml, Weight 7lbs 2 oz. Mom and baby remain in LDR stable. Fundus firm at umb, lochia moderate. Patient to remain on labor on MGSO4 at 2 grams per/hr for pressures. Martínez cath re-inserted. Labetalol 200 mg po to begin tonight @ 2200. Dr. Sosa aware of plan. - Infant A at 1 minute: 8 at 5 minutes: 8 Infant Gender: Female (Weight 7lbs 2 oz Juliette)
[2019-10-18] MEDS ORDERED: IBUPROFEN 800 MG TAB PO SCH (14:00)
[2019-10-18] MEDS ORDERED: IBUPROFEN 600 MG TAB PO SCH (14:00)
[2019-10-18] MEDS: IBUPROFEN 800 MG TAB PO SCH ×2 (14:16→21:06)
[2019-10-18] MEDS ORDERED: MAGNESIUM HYDROXIDE (MOM) ORAL LIQD UDC PO PRN (22:00)
[2019-10-19 01:24] LABS: Hematocrit 33.1 % (30.3-42.9); Hemoglobin 10.9 gm/dl (10.1-14.3)
[2019-10-19] MEDS: LACTATED RINGERS 1,000 ML IV SCH (03:20)
[2019-10-19] MEDS: IBUPROFEN 800 MG TAB PO SCH ×3 (05:28→17:52)
--- NOTE | 2019-10-19 10:34 | Progress Note ---
Assessment and Plan OOB walking in room preparing to transfer to [facility]. BP 120/50-60 Labetalol held @ 1000. FF below umb Lochia small Perineum slight swelling intact. H&H Asymptomatic. Doing well s/p vag del with elevated BP CHTN; s/p MGSO4. P: continue pathway orders Advance as tolerated. D/C tomorrow. - Patient Problems (1) HTN (hypertension) Onset Date: ~10/18/19 Current Visit: Yes Status: Acute Qualifiers: Hypertension type: essential hypertension Qualified Code(s): I10 - Essential (primary) hypertension Plan to address problem: Completed 24hr MGSO4. Pt started on Labetalol 100 QD RX for d/c home on chart Subjective - Subjective Date of service: 10/19/19 (When can I go home?) Principal diagnosis: Day # 1 s/p ; elevated BP MGSO4 X 24hr d/c transfer to [facility] Interval history: SVE /-2 Moderate bloody show. Epidural in. Martínez to BSD. FSE placed due to difficulty maintaining continuous EFM. Cat 2 tracing immediately following Epidural placement. Position changed to left side lying Patient reports: appetite normal, voiding normally, pain well controlled [place]: doing well Objective - Vital Signs Latest vital signs: Vital Signs Temp Pulse Resp BP Pulse Ox 10/19/19 09:57 80 105/60 10/19/19 09:45 74 100 10/19/19 09:40 84 100 10/19/19 09:35 76 98 10/19/19 09:30 74 99 10/19/19 09:25 75 99 10/19/19 09:20 75 99 10/19/19 09:15 78 100 10/19/19 09:10 84 99 10/19/19 09:05 82 99 10/19/19 09:00 83 100 10/19/19 08:57 80 106/59 10/19/19 08:55 80 99 10/19/19 08:50 89 100 10/19/19 08:45 91 H 99 10/19/19 08:40 80 99 10/19/19 08:35 83 99 10/19/19 08:30 81 99 10/19/19 08:25 77 99 10/19/19 08:20 82 99 10/19/19 08:15 88 99 10/19/19 08:10 77 99 10/19/19 08:05 77 99 10/19/19 08:00 74 100 06 07:57 73 109/61 10/19/19 07:55 74 99 10/19/19 07:50 76 100 10/19/19 07:45 77 99 10/19/19 07:40 77 100 10/19/19 07:35 86 99 10/19/19 07:30 88 100 10/19/19 07:25 84 98 10/19/19 07:20 78 98 10/19/19 07:15 80 98 10/19/19 07:10 80 98 10/19/19 07:05 75 98 06 07:00 80 99 10/19/19 06:57 75 121/71 10/19/19 06:55 82 99 10/19/19 06:50 74 99 10/19/19 06:45 79 99 10/19/19 06:41 78 91 10/19/19 06:40 79 97 10/19/19 06:35 78 97 10/19/19 06:30 82 100 10/19/19 06:25 81 99 10/19/19 06:20 78 98 10/19/19 06:15 79 98 10/19/19 06:10 78 98 10/19/19 06:05 77 98 10/19/19 06:00 76 97 10/19/19 05:57 76 94/54 10/19/19 05:55 77 98 10/19/19 05:50 78 98 10/19/19 05:45 75 98 10/19/19 05:40 75 99 10/19/19 05:35 72 99 10/19/19 05:30 73 99 10/19/19 05:25 81 100 10/19/19 05:20 74 100 10/19/19 05:15 74 98 10/19/19 05:10 77 98 10/19/19 05:05 77 98 10/19/19 05:00 79 96 06 04:57 79 121/64 10/19/19 04:55 83 97 10/19/19 04:50 76 98 10/19/19 04:45 76 97 06 04:40 76 98 10/19/19 04:35 74 98 10/19/19 04:30 73 98 10/19/19 04:25 74 98 06 04:20 74 97 10/19/19 04:15 76 97 10/19/19 04:10 74 97 10/19/19 04:05 75 97 10/19/19 04:00 75 98 10/19/19 03:57 71 110/69 10/19/19 03:55 72 99 10/19/19 03:50 86 100 10/19/19 03:45 80 100 10/19/19 03:40 84 99 10/19/19 03:35 83 98 10/19/19 03:30 87 98 10/19/19 03:25 80 99 10/19/19 03:20 80 99 10/19/19 03:15 73 98 10/19/19 03:10 73 98 10/19/19 03:05 81 99 10/19/19 03:00 77 98 06 02:57 76 99/57 10/19/19 02:55 75 98 10/19/19 02:50 86 99 10/19/19 02:45 77 99 10/19/19 02:40 77 98 10/19/19 02:35 75 98 10/19/19 02:30 86 99 10/19/19 02:25 77 98 10/19/19 02:20 83 98/53 99 10/19/19 02:15 80 98 10/19/19 02:10 84 98 10/19/19 02:05 87 98 10/19/19 02:00 82 98 10/19/19 01:57 81 104/54 10/19/19 01:55 80 99 10/19/19 01:50 81 99 10/19/19 01:45 90 99 10/19/19 01:40 80 98 10/19/19 01:35 78 99 10/19/19 01:30 81 98 06 01:25 78 98 10/19/19 01:20 86 98 10/19/19 01:15 82 99 10/19/19 01:10 76 98 10/19/19 01:05 76 98 06 01:00 83 99 06 00:57 78 103/56 06 00:55 79 98 10/19/19 00:50 79 98 10/19/19 00:45 81 98 10/19/19 00:40 78 99 10/19/19 00:35 83 99 10/19/19 00:30 92 H 98 10/19/19 00:25 88 99 10/19/19 00:20 87 100 10/19/19 00:12 85 99 10/19/19 00:07 80 98 10/19/19 00:02 82 98 10/18/19 23:57 83 107/58 98 10/18/19 23:52 81 98 10/18/19 23:47 79 98 10/18/19 23:45 98.5 F 10/18/19 23:42 87 98 10/18/19 23:37 90 99 10/18/19 23:32 96 H 98 10/18/19 23:27 84 98 10/18/19 23:22 88 98 10/18/19 23:21 86 124/61 10/18/19 23:17 82 99 10/18/19 23:12 93 H 97 10/18/19 23:07 82 98 10/18/19 23:02 84 98 10/18/19 22:57 85 103/58 99 10/18/19 22:52 81 98 10/18/19 22:47 84 99 10/18/19 22:42 82 98 10/18/19 22:37 87 99 10/18/19 22:32 103 H 99 10/18/19 22:27 91 H 99 10/18/19 22:22 89 100 10/18/19 22:17 101 H 100 10/18/19 22:12 86 98 10/18/19 22:07 85 98 10/18/19 22:02 83 99 10/18/19 21:57 99 H 125/79 99 10/18/19 21:52 82 98 10/18/19 21:47 84 99 10/18/19 21:42 84 98 10/18/19 21:37 86 99 10/18/19 21:32 81 99 10/18/19 21:27 80 99 10/18/19 21:22 99 H 100 10/18/19 21:17 78 99 10/18/19 21:12 71 99 10/18/19 21:07 99 H 100 10/18/19 21:06 76 132/78 06/27/20 21:02 82 98 10/18/19 20:59 93 H 94 10/18/19 20:57 83 132/78 98 10/18/19 20:52 79 99 10/18/19 20:47 95 H 98 10/18/19 20:42 78 98 10/18/19 20:37 78 99 10/18/19 20:32 78 98 10/18/19 20:27 80 99 10/18/19 20:22 80 99 10/18/19 20:17 79 99 10/18/19 20:12 80 98 10/18/19 20:07 79 99 10/18/19 20:02 78 98 10/18/19 19:57 77 143/76 99 10/18/19 19:52 81 99 10/18/19 19:47 82 100 10/18/19 19:45 97.6 F 10/18/19 19:42 81 100 10/18/19 19:37 82 100 10/18/19 19:32 92 H 99 10/18/19 19:27 90 100 10/18/19 19:22 80 100 10/18/19 19:17 85 100 10/18/19 19:12 86 100 10/18/19 19:07 81 100 10/18/19 19:02 89 99 10/18/19 18:57 85 100 10/18/19 18:56 85 145/79 10/18/19 18:52 77 100 10/18/19 18:47 89 99 10/18/19 18:42 91 H 99 10/18/19 18:37 108 H 99 10/18/19 18:32 87 99 10/18/19 18:27 86 100 10/18/19 18:22 84 99 10/18/19 18:17 84 99 10/18/19 18:12 82 100 10/18/19 18:07 86 100 10/18/19 18:02 97 H 100 10/18/19 17:57 83 99 10/18/19 17:52 84 99 10/18/19 17:47 85 99 10/18/19 17:42 86 100 10/18/19 17:16 86 99 10/18/19 17:11 82 100 10/18/19 17:06 82 99 10/18/19 17:04 98.8 F 10/18/19 17:02 88 141/77 0620 17:01 87 100 10/18/19 16:56 84 99 10/18/19 16:51 84 99 10/18/19 16:46 89 100 10/18/19 16:41 88 100 10/18/19 16:36 90 176/88 100 10/18/19 16:31 94 H 100 10/18/19 16:26 80 100 10/18/19 16:21 87 100 10/18/19 16:16 83 100 10/18/19 16:11 85 100 10/18/19 16:06 83 100 10/18/19 16:01 84 100 10/18/19 15:56 79 100 10/18/19 15:51 85 100 10/18/19 15:46 74 100 10/18/19 15:41 79 100 10/18/19 15:36 79 139/99 100 10/18/19 15:31 98 H 100 10/18/19 15:26 89 100 10/18/19 15:21 89 100 10/18/19 15:16 97 H 100 10/18/19 15:11 93 H 100 10/18/19 15:06 89 98 10/18/19 15:01 88 98 10/18/19 14:56 81 98 10/18/19 14:51 84 99 10/18/19 14:46 87 100 10/18/19 14:41 72 100 10/18/19 14:36 72 100 10/18/19 14:31 84 100 10/18/19 14:26 80 100 10/18/19 14:22 78 126/59 10/18/19 14:21 84 100 10/18/19 14:16 79 100 10/18/19 14:11 74 100 10/18/19 14:08 98.9 F 10/18/19 14:07 80 142/63 10/18/19 14:06 74 100 10/18/19 14:01 76 100 10/18/19 13:56 70 100 10/18/19 13:52 75 138/68 10/18/19 13:51 73 100 10/18/19 13:46 93 H 99 10/18/19 13:41 80 100 10/18/19 13:37 77 135/70 10/18/19 13:36 78 99 10/18/19 13:31 83 100 10/18/19 13:26 75 100 10/18/19 13:22 130/62 10/18/19 13:21 72 100 10/18/19 13:16 88 100 10/18/19 13:11 92 H 100 10/18/19 13:07 72 117/70 10/18/19 13:06 91 H 98 10/18/19 13:01 73 99 10/18/19 12:56 77 99 10/18/19 12:52 74 119/71 10/18/19 12:51 87 99 10/18/19 12:46 83 100 10/18/19 12:41 90 100 10/18/19 12:36 77 100 10/18/19 12:31 90 100 10/18/19 12:26 76 100 10/18/19 12:24 88 139/70 10/18/19 12:21 75 100 10/18/19 12:16 92 H 100 10/18/19 12:11 82 99 10/18/19 12:10 94 H 155/81 10/18/19 12:09 98.2 F 84 20 99 10/18/19 12:06 84 99 10/18/19 12:01 78 99 10/18/19 12:00 85 165/89 10/18/19 11:56 87 100 10/18/19 11:55 95 H 189/114 10/18/19 11:51 94 H 99 10/18/19 11:46 85 99 10/18/19 11:41 87 99 10/18/19 11:36 99 H 99 10/18/19 11:31 76 99 10/18/19 11:26 76 100 10/18/19 11:21 78 100 10/18/19 11:16 80 100 10/18/19 11:11 90 100 10/18/19 11:06 82 100 10/18/19 11:01 85 100 10/18/19 10:56 82 100 10/18/19 10:55 75 144/86 10/18/19 10:51 81 100 10/18/19 10:46 85 100 10/18/19 10:41 82 100 10/18/19 10:36 85 100 10/18/19 10:31 81 100 Intake and Output 10/18/19 10/19/19 10/19/19 22:59 06:59 14:59 Intake Total 1000 600 Output Total 2024 1074 Balance -1023 -444 Intake: IV 1000 Lactated Ringers 1,000 ml 1000 @ 125 mls/hr IV DIRECT JASON Rx#:[id number] Oral 600 Output: Urine 2024 1074 Indwelling Catheter 2024 1074 Other: Total, Intake Amount 600 Total, Output Amount 250 125 - Exam Breasts: Present: normal Cardiovascular: Present: Regular rate Lungs: Present: Normal air movement Abdomen: Present: normal appearance, soft, normal bowel sounds Uterus: Present: normal Extremities: Present: normal Incision: Present: normal, dry, edematous (2nd degree laceration Repaired in usual fashion), intact - Labs Labs: Abnormal lab results 10/18/19 10/19/19 10/19/19 Range/Units 20:45 00:57 07:26 Magnesium 4.00 H 4.50 H 4.10 H (1.7-2.3) mg/dL
--- NOTE | 2019-10-19 12:02 | Post Anesthesia Evaluation ---
- Post Anesthesia Evaluation Patient Participated: Yes Airway Patent: Yes Stable Respiratory Function: Yes Nausea/Vomiting: No Temp > 96.8F: Yes Pain Manageable: Yes Adequeate Hydration: Yes Anesthesia Complications: No Block Receding Appropriately: Yes Patient on Ventilator: No
[2019-10-19] MEDS ORDERED: DIPHtheria,PERTUSSIS(ACELL),TETANUS VACCINE/PF 0.5 ML VIAL IM ONE (13:20)
[2019-10-20] MEDS: IBUPROFEN 800 MG TAB PO SCH (02:41)
--- NOTE | 2019-10-20 08:45 | Discharge Summary ---
Providers - Providers Date of Admission: 10/17/19 20:16 Date of discharge: 10/20/19 (Pt stable for discharge home. ) Attending physician: RAYNE CEVRANTES Primary care physician: RAYNE CERVANTES Hospitalization Reason for admission: induction of labor Delivery: Episiotomy: none Laceration: 2nd degree Incision: normal Other procedures: none complications: none Discharge diagnosis: IUP at term delivered baby: female Hospital course: S: Pt doing well. Passing flatus, voiding, ambulating without difficulty. BC: Nexplanon. Denies SHARMA, blurred vision, spots before her eyes, upper abdominal pain. O: VSS. Fundus firm. Minimal bleeding noted. H/H 10.9/33.1. BP ranges 100's-140's/50-70's. 2nd degree laceration healing well. A: 34 y.o. s/p @ term. S/p mag infusion, normal range BP's during the last shift. Stable for discharge home. P: Discharge home with instructions. To schedule a blood pressure check in the office in 1 week. To schedule a visit in 4 weeks. Condition at discharge: Good Disposition: DC-01 TO HOME OR SELFCARE Plan - Discharge Medications Prescriptions: labetaloL [Labetalol 100mg TAB] 100 mg PO BID #60 tablet Ibuprofen [Motrin 800 MG tab] 800 mg PO TID PRN #30 tablet PRN Reason: Pain - Provider Discharge Summary Activity: routine, no sex for 6 weeks, no heavy lifting 4 weeks, no strenuous exercise Diet: routine Instructions: routine Additional instructions: [] Smoking cessation referral if applicable(refer to patient education folder for contact #) [] Refer to [facility] Booklet Call your doctor immediately for: * Fever > 100.5 * Heavy vaginal bleeding ( >1 pad per hour) * Severe persistent headache * Shortness of breath * Reddened, hot, painful area to leg or breast * Drainage or odor from incision. * Keep incision clean and dry at all times and follow doctor's instructions regarding bathing/showering - Follow up plan Follow up: RAYNE CERVANTES MD [Primary Care Provider] - 7 Days (Congratulations!! Please schedule a blood pressure check in the office in 1 week. Please schedule a visit in the office in 4 weeks. Please take all medications as prescribed. If you have any questions or concerns, please do not hesitate to call the office @ [phone]. )
[2019-10-20 13:42] VITALS: BP 127/82
== END 2019-10-20 14:00 | disposition home or self-care (01) | DRG 774 ==
LOC: LD 20:16 → OB 10-19 10:44
PROVIDERS: ADMIT Obstetrics & Gynecology; ATTEND Obstetrics & Gynecology
PROC: 10E0XZZ Delivery of Products of Conception, External Approach (ICD-10-PCS; principal; 2019-10-18)
PROC: 0KQM0ZZ Repair Perineum Muscle, Open Approach (ICD-10-PCS; 2019-10-18)
PROC: 3E0P7VZ Introduction of Hormone into Female Reproductive, Via Natural or Artificial Opening (ICD-10-PCS; 2019-10-18)
PROC: 3E033VJ Introduction of Other Hormone into Peripheral Vein, Percutaneous Approach (ICD-10-PCS; 2019-10-18)
PROC: 10H07YZ Insertion of Other Device into Products of Conception, Via Natural or Artificial Opening (ICD-10-PCS; 2019-10-18)
PROC: 10H073Z Insertion of Monitoring Electrode into Products of Conception, Via Natural or Artificial Opening (ICD-10-PCS; 2019-10-18)
PROC: 3E0234Z Introduction of Serum, Toxoid and Vaccine into Muscle, Percutaneous Approach (ICD-10-PCS; 2019-10-19)
DX: O99.824 Streptococcus B carrier state complicating childbirth (principal); O10.92 Unspecified pre-existing hypertension complicating childbirth; O69.81X0 Labor and delivery complicated by cord around neck, without compression, not applicable or unspecified; Z3A.39 39 weeks gestation of pregnancy; Z37.0 Single live birth; O70.1 Second degree perineal laceration during delivery; Z23 Encounter for immunization
CPT/HCPCS: 36415; 59025; 59200; 81001; 82565; 83615; 83735; 84450; 84460; 84550; 85014; 85018; 85027; 86592; 86850; 86900; 86901; 87086; 88307; 96360; 96361; 96365; 96366; 96374; G0378; J0290; J0595; J2590; J3475; J3490; J7120